=== PATIENT | female | born 1975 | race Caucasian/White ===

== ENCOUNTER 2024-12-30 23:02 | Inpatient (IN) | payer OTHER, SELFPAY ==
[2024-12-30 14:47] VITALS: BP 89/63
[2024-12-30] MEDS: NSS 1000 IV (15:01)
[2024-12-30 15:08] VITALS: BP 95/64
[2024-12-30 15:08] LABS: Hematocrit 44.2 % (37.0-47.0); Hemoglobin 16.2 g/dL (12.0-16.0); Mean Corp Hgb Conc. 36.7 g/dL (33.0-37.0); Mean Corpuscular Volume 85.8 fL (81.0-99.0); Nucleated Red Blood Cells % 0 %; Platelet Count 554 10^3/uL (130-400); Red Cell Dist. Width 11.7 % (11.5-14.5)
[2024-12-30 15:26] LABS: ALT (SGPT) 26 U/L (0-35); AST (SGOT) 36 U/L (14-36); Albumin 5.1 g/dl (3.5-5.0); Alkaline Phosphatase 157 U/L (38-126); Blood Urea Nitrogen 42 mg/dl (7-17); Calcium 10.7 mg/dl (8.4-10.2); Carbon Dioxide 21 mmol/L (22-30); Chloride 91 mmol/L (98-107); Glucose 118 mg/dl (70-99); Lipase 260 U/L (23-300); Potassium 4.5 mmol/L (3.5-5.1); Sodium 126 mmol/L (135-145); Total Protein 8.9 g/dl (6.3-8.2); eGFR 28.71
[2024-12-30 15:45] LABS: HCG, Serum Qualitative Screen Negative
[2024-12-30 17:51] VITALS: BP 89/67
--- NOTE | 2024-12-30 18:18 | ED.GENMED ---
History of Present Illness
General
Chief Complaint: Dehydration Symptoms
Time Seen by Provider: 12/30/24 18:01
History of Present Illness
History of Present Illness:
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
increased ostomy output for the past 4 days. Denies any bloody or mucousy ostomy output. No fevers or chills. No ill contacts at home. Maintained on Skyrizi for presumptive Crohn's disease. Primary GI and surgical management is at the
[facility]
Review of Systems
Review of Systems
Allergies reviewed?: Yes
All Other Systems: ROS reviewed and negative except as documented in HPI and ROS
Phy Exam
Physical Exam
Physical Exam:
GEN: Well appearing, NAD, WDWN
HEENT: Oral mucosa moist, no scleral icterus
Cardiac: Tachycardic, regular
Lung: No respiratory distress, no tachypnea, lungs clear to auscultation
Abdomen: Soft, diffusely tender to all 4 quadrants, left-sided ileostomy
MSK: No gross deformity or injuries
Skin: Good color, no pallor or jaundice, no rashes
Neuro: AO x3, moves all extremities freely
Psych: Calm, cooperative
Course
Orders/Labs/Results
Orders:
Orders
12/30/24 14:53
Test Result ONCE
12/30/24 15:00
Complete Blood Count/With Diff Urgent
Comprehensive Metabolic Panel Urgent
HCG, Serum Qualitative Screen Urgent
Lipase Urgent
12/30/24 15:01
0.9% Sodium Chloride 1000 ml [Nss] 1,000 ml IV BOLUS
12/30/24 18:08
Lactated Ringers [Lr] 1,000 ml IV BOLUS
12/30/24 18:16
Lorazepam [Ativan] 0.5 mg PO NOW STA
Ondansetron Injectable [Zofran] 4 mg IV NOW STA
12/30/24 18:18
CT Abd/pel (oral only)-DH Only Urgent
Comment: hx of total colectomy, J pouch, ileostomy
Reason For Exam: abd pain, increased ostomy output
Iohexol [Omnipaque] See Protocol PO NOW STA
12/30/24 19:55
Ondansetron Injectable [Zofran] 4 mg .ROUTE .STK-MED ONE
12/30/24 19:58
Ondansetron Injectable [Zofran] 4 mg IV NOW STA
12/30/24 22:10
Calprotectin, Fecal [S] Stat
Date Specimen was Collected: 12/31/24
Time Specimen was Collected: 00:05
C DIFF [C difficile Antigen & Toxins] Stat
BONNIE Source: Feces/Stool
Specimen Description:
Date Specimen was Collected: 12/31/24
Time Specimen was Collected: 00:05
Norovirus by PCR Stat
BONNIE Source: Feces/Stool
Specimen Description:
Date Specimen was Collected: 12/31/24
Time Specimen was Collected: 00:05
Stool Culture Urgent
BONNIE Source: Feces/Stool
Specimen Description:
Date Specimen was Collected: 12/30/24
Time Specimen was Collected: 21:54
12/30/24 22:46
Admit/Transfer Patient As Directed
Co-Sign Provider:
Level of Care: Inpatient admission
Assign to:: IMU- Intermediate Care
Physician / Group: Kimberly
Diagnosis: Diarrhea
Reason for Hospitalization: hyponatremia
Expected length of stay greater than two midnights?: Yes
ELOS- Estimated Length of Stay in days: 2
I certify the patient meets the requirements for IP care: Yes
PRN Pain Medication Management As Directed
May give lesser potent ordered pain med per pt: Yes
preference::
Protocol:: Medication orders for pain may be administered in a
manner that supports deferring to patient preference
when the pt is:
- Requesting an ordered lesser potent pain medication.
Least to most potent pain medications are defined
as: acetaminophen < NSAID < tramadol < opioids
(morphine, oxycodone, hydromorphone).
- Requesting a lesser dose of the same medication IF
ORDERED.
- Requesting a less intrusive route of administration
if both routes are prescribed by the provider (PO <
IV).
12/30/24 22:47
Code Status As Directed
Resuscitation Status: Full Code
12/30/24 22:55
Add On - Microbiology Urgent
Tests Added?: nurovirus, C-DIFF
Abnormal Lab Results
12/30/24
15:00
Hgb 16.2 H g/dL
(12.0-16.0)
MCH 31.5 H pg
(27.0-31.0)
Plt Count 554 H 10^3/uL
(130-400)
Absolute Monos (auto) 1.4 H 10^3/uL
(0.1-0.6)
Monocytes % 17.3 H %
(1.7-9.3)
Sodium 126 L mmol/L
(135-145)
Chloride 91 L mmol/L
(98-107)
Carbon Dioxide 21 L mmol/L
(22-30)
BUN 42 H mg/dl
(7-17)
Creatinine 2.1 H mg/dL
(0.6-1.0)
Glucose 118 H mg/dl
(70-99)
Calcium 10.7 H mg/dl
(8.4-10.2)
Alkaline Phosphatase 157 H U/L
(38-126)
Total Protein 8.9 H g/dl
(6.3-8.2)
Albumin 5.1 H g/dl
(3.5-5.0)
12/30/24 15:00
12/30/24 15:00
Vital Signs
Initial and Last Documented VS:
Initial Vital Signs
Temp Pulse Resp BP Pulse Ox
97.9 F 116 20 89/63 97
12/30/24 14:47 12/30/24 14:47 12/30/24 14:47 12/30/24 14:47 12/30/24 14:47
Last Documented Vital Signs
Temp Pulse Resp BP Pulse Ox
97.9 F 96 16 84/60 98
12/30/24 14:47 12/31/24 00:17 12/30/24 23:50 12/31/24 00:17 12/30/24 23:50
MDM/Problems Addressed
MDM/Problems Addressed:
Phone patient with significant hyponatremia and JERRY most likely the product of high output ileostomy, CT shows no acute surgical process. Will send stool for culture and admit to the hospitalist service for further management
*Pulse Oximetry
SaO2: 98
Oxygen Mode of Delivery: Room air
Patient hypoxic: no
*Critical Care Note
Total Time (30-74mins, 75-104mins- exclusive of procedures): Not Applicable
ED Attending Note
-
Portions of this chart may have been created with voice recognition software.� Occasional wrong word or��sound alike� substitutions may have occurred due to the inherent limitations of voice recognition software.
Discharge Plan
Departure
Patient Disposition: Admit
Date of Disposition: 12/30/24
Time of Disposition: 22:13
Presentation/result/management discussed w/ accepting MD/DO: Hospitalist
Discharge Problem:
Gastroenteritis, Acute hyponatremia, Acute kidney injury
Interventions
Interventions:
*Risk Screen - Suicide Last Done: 12/30/24 14:47
*General Assessment Last Done: 12/30/24 14:47
*Neglect/Abuse Screening Last Done: 12/30/24 22:00
*ED- Fall Risk Assessment Last Done: 12/30/24 17:52
*ED COVID-19 Vaccine History Last Done: 12/30/24 22:00
ED- Cardiac Assessment Last Done: 12/30/24 20:11
ED- Neurological Assessment Last Done: 12/30/24 17:52
ED- Pulmonary Assessment Last Done: 12/30/24 17:52
[2024-12-30] MEDS: LR 1000 IV (18:32)
[2024-12-30] MEDS: ATIVAN 0.5 MG PO (18:32)
[2024-12-30] MEDS: ZOFRAN 4 MG IV ×2 (18:34→19:58)
[2024-12-30] MEDS: OMNIPAQUE 50 ML PO (18:36)
[2024-12-30 22:17] VITALS: BP 89/65
--- NOTE | 2024-12-30 22:26 | HPS.HSE ---
Family Physician
-
Family Physician: Vinicio Richardson
Chief Complaint
-
Dehydration
History of Present Illness
This is a 49-year-old female with past medical history significant for Crohn's/ulcerative colitis was status post complete colectomy with subsequent ileostomy and now currently on Skyrizi who presents to the emergency department with generalized
weakness and complaints of dehydration including muscle cramps and lightheadedness.
Patient reported that she began having symptoms about 4 days ago. She started having nausea and vomiting which was nonbloody and nonbilious. She reported that she has had increased output from ileostomy. She reports any intake results in
intermediate increased output from the ileostomy. She reports chills but denies any fevers. She denies any sick contacts.
She had extensive stool evaluation on December 02 which was negative for an infectious process. There was no acute inflammatory process at that time. She was continued on current dose of Skyrizi injections.
In ED she was afebrile, blood pressure was 90/65 with a pulse rate of 87 and she satting 100% on room air. There was no leukocytosis, hemoglobin was 16.2 with a plate count of 580. Sodium was 126 with rest of the lites normal. BUN and creatinine
were elevated at 42 and 2.1. Calcium was 10.7. Glucose was normal at 118.
CT of the abdomen pelvis shows no acute findings and consistent with her prior surgery.
Medical History
Past Medical History
Past Medical History: Reports Other
Additional Past Medical History:
Ulcerative colitis
Past Surgical History: Reports Bowel Resection (Colectomy with end ileostomy )
Social History
Tobacco: Non-smoker
Alcohol: None
Drug: None
Family History
Family History: Not pertinent
Allergies / Home Medications
Allergies reflects when Allergies were last updated in [facility].
Home Medications with original date entered in [facility]
Allergy/Medication List:
Allergies
Allergy/AdvReac Type Severity Reaction Status Date / Time
Penicillins Allergy Unknown Verified 12/30/24 14:48
Sulfa (Sulfonamide Allergy Unknown Verified 12/30/24 14:48
Antibiotics)
Home Medications
diphenhydramine HCl 50 mg capsule 50 mg PO HS 12/30/24
escitalopram oxalate 10 mg tablet (Lexapro) 10 mg PO DAILY 12/30/24
loperamide 2 mg capsule 2 mg PO QID PRN diarrhea 12/30/24
lorazepam 0.5 mg tablet (Ativan) 0.5 mg PO DAILY PRN anxiety 12/30/24
risankizumab-rzaa 150 mg/mL subcutaneous syringe (Skyrizi) 150 mg SC Q8W 12/30/24
Review of Systems
-
A 12 point ROS was completed and negative except as noted: Yes
Constitutional: Reports No Symptoms
EENT: Reports No Symptoms
Respiratory: Reports No Symptoms
Cardiac: Reports No Symptoms
Abdomen/GI: Reports Nausea, Vomiting and Anorexia
: Reports No Symptoms
Musculoskeletal: Reports No Symptoms
Skin: Reports No Symptoms
Neurological: Reports No Symptoms
Endocrine: Reports No Symptoms
Hematologic/Lymphatic: Reports No Symptoms
Psych: Reports No Symptoms
Physical Exam
Vital Signs
Vital Signs
Temp Pulse Resp BP Pulse Ox
97.9 F 87 20 89/65 100
12/30/24 14:47 12/30/24 21:54 12/30/24 17:51 12/30/24 22:17 12/30/24 21:54
Physical Exam
General: No Apparent Distress and Appears Chronically Ill
HEENT: NormoCephalic, Moist mucous membranes and Atraumatic
Respiratory: Clear
Cardiac: S1/S2 and Regular Rhythm; No Murmur or Rub
GI: Soft, Non Tender, Non Distended, Normal Bowel Sounds and Ostomy; No Organomegaly
Rectal: Deferred by Provider
Genito-urinary: Deferred by me
Musculoskeletal: No Clubbing, No Cyanosis and No Edema
Skin: No Rash
Neuro: AO x 3 and Nonfocal/grossly intact
Psych: Calm
Laboratory Results
-
12/30/24 15:00
12/30/24 15:00
Laboratory Results
Total Bilirubin 1.2 mg/dl (0.2-1.3) 12/30/24 15:00
AST 36 U/L (14-36) 12/30/24 15:00
ALT 26 U/L (0-35) 12/30/24 15:00
Alkaline Phosphatase 157 U/L (38-126) H 12/30/24 15:00
Lipase 260 U/L (23-300) 12/30/24 15:00
Data Reviewed
-
CT Scan: Report Reviewed by me
Lab Data: Labs Reviewed by me
Old Records: Reviewed
Impression/Plan
-
IMPRESSION:
49-year-old with history of Crohn's disease presents to the emergency department with 4 days of nausea vomiting and increased output from ileostomy consistent with gastroenteritis but cannot rule out an inflammatory process. She has no leukocytosis
but does have signs of significant dehydration with elevated hemoglobin, elevated BUN and creatinine and a sodium of 126. Recent labs usual sodium usually runs around 135 with a baseline creatinine of around 0.7. Other labs are unremarkable. CT
of the abdomen pelvis shows no acute intra-abdominal process. Blood pressure usually ranges 95 systolic but is currently around 87 systolic with patient's not having any acute symptoms.
PLAN:
Diarrhea -suspect likely viral gastroenteritis but cannot rule out inflammatory process
-Admit to MedSurg
-Check stool for norovirus, stool culture, WBC, C. difficile
-Check fecal calprotectin
-Check ESR and CRP
-In the absence of signs of mucus production, will hold off on steroids for now
-Aggressive hydration with IV normal saline
Hyponatremia-suspect secondary to massive volume losses and decreased p.o. intake
-Continue IV fluids 1-2 episodes an hour, normal saline,
-Free water intake restriction to 1200 cc for now
-Repeat labs after normal saline bolus, if improving continue IV fluids
-Check urine awesome's lites
-Orthostatic vital signs
-Nephrology consultation if labs not improving
JERRY -suspect prerenal azotemia with rapid rise in BUN and creatinine as well as a BUN/creatinine ratio greater than 20
-IV fluids as above
-No nephrotoxins
DVT prophylaxis�heparin subcu
CODE STATUS�full code
[2024-12-30 22:27] VITALS: BMI 17.5
[2024-12-30 23:50] VITALS: BP 80/55
[2024-12-30 23:56] VITALS: BP 84/60
[2024-12-31] VITALS (17 sets, daily range): BP systolic 74–115; BP diastolic 39–70; PULSE 82–110; BMI 17.5
[2024-12-31] MEDS: NSS 500 IV ×2 (00:20→11:42)
[2024-12-31] MEDS: BENADRYL 25 MG IV (03:17)
[2024-12-31] MEDS: ZOFRAN 4 MG IV ×2 (03:27→10:20)
[2024-12-31] MEDS: SODIUM BICARBONATE 1075 MEQ IV (03:30)
[2024-12-31 03:50] LABS: Blood Urea Nitrogen 32 mg/dl (7-17); Calcium 9.0 mg/dl (8.4-10.2); Carbon Dioxide 26 mmol/L (22-30); Chloride 99 mmol/L (98-107); Estimated Creatinine Clearance 37 ml/min; Glucose 95 mg/dl (70-99); Magnesium 1.7 mg/dl (1.6-2.3); Potassium 3.9 mmol/L (3.5-5.1); Sodium 129 mmol/L (135-145); eGFR 46.70
[2024-12-31] MEDS: TYLENOL 650 MG PO ×2 (06:35→17:32)
[2024-12-31 06:54] LABS: Blood Urea Nitrogen 29 mg/dl (7-17); Calcium 8.9 mg/dl (8.4-10.2); Carbon Dioxide 27 mmol/L (22-30); Chloride 99 mmol/L (98-107); Estimated Creatinine Clearance 37 ml/min; Glucose 81 mg/dl (70-99); Magnesium 1.7 mg/dl (1.6-2.3); Potassium 3.6 mmol/L (3.5-5.1); Sodium 129 mmol/L (135-145); eGFR 46.70
[2024-12-31 06:57] LABS: C-Reactive Protein 8.90 mg/L (0.0-10.00)
[2024-12-31 07:00] LABS: Hematocrit 31.7 % (37.0-47.0); Hemoglobin 11.4 g/dL (12.0-16.0); Mean Corp Hgb Conc. 36.0 g/dL (33.0-37.0); Mean Corpuscular Volume 86.1 fL (81.0-99.0); Platelet Count 320 10^3/uL (130-400); Red Cell Dist. Width 11.9 % (11.5-14.5)
[2024-12-31 07:27] LABS: TSH 0.96 uIU/ml (0.47-4.68)
--- NOTE | 2024-12-31 08:50 | EDRN ---
in to See pt at this time
[2024-12-31] MEDS: LEXAPRO 10 MG PO (09:09)
[2024-12-31] MEDS: FIORICET 1 TAB PO (09:10)
--- NOTE | 2024-12-31 09:33 | EDRN ---
Notified Dr. Poli nesbitt at this time about low BP via TT.
--- NOTE | 2024-12-31 10:05 | EDRN ---
Pt eating breakfast at this time.
--- NOTE | 2024-12-31 10:07 | EDRN ---
At 9:39 response to TT at 9:33 was that pt is still probably dry and asked about bicarb drip and was informed that it is still infusing at 9:52. then that BP sitting was 93/69 when sitting up and eating at 9:53 and he asked how she is feeling and
was told fine. Pt after last BP requested to have BP cuff removed but this RN said that it should be continued to be monitored as it was so low.
--- NOTE | 2024-12-31 10:13 | EDRN ---
Pt OOB to BR after finishing her meal though has nausea now and will administer zofran.
--- NOTE | 2024-12-31 11:13 | EDRN ---
Pt has outstanding stool cultures and needs a private room in this case so room had to be changed w/ admissions called at this time.
--- NOTE | 2024-12-31 11:26 | EDRN ---
TT sent to Dr. Poli Robin at this time about pt's orthostatic VS w/ standing BP 76/57 w/ HR 110.
--- NOTE | 2024-12-31 11:45 | EDRN ---
500 Ml of NSS ordered and hung wide open at this time.
--- NOTE | 2024-12-31 11:45 | EDRN ---
Pt refused to keep BP cuff on at this time.
--- NOTE | 2024-12-31 11:51 | W.PN.HOSP.TC ---
Today's Communication/Plan
-
Assessment / Plan
Assessment / Plan
General: No Apparent Distress, Conversant
HEENT: NormoCephalic, Moist mucous membranes, Atraumatic
Respiratory: Clear and Non Labored Respirations
Cardiac: S1/S2 and Regular Rhythm; No Rub or Gallop
GI: Soft, Non Tender, ileostomy in place
Musculoskeletal: No Edema, no deformity
Skin: Warm and dry
: NO Phillips
Neuro: Awake, Alert, Nonfocal/grossly intact
Psych: Calm and cooperative
Ms. Barrios is a 49-year-old female with a medical history of Crohn's disease (status post total colectomy with end ileostomy, on [facility]) who presents with generalized weakness, muscle cramps, and lightheadedness. Her symptoms began proximally 4
days prior to arrival when she developed nausea and nonbloody vomiting in addition to increased ileostomy output. Extensive recent stool evaluation on December 02 is negative for infectious processes. She was hypotensive in the ED with a BP of 90/65.
No leukocytosis. Elevated hemoglobin of 16.2 and platelets of 580 suspect due to hemoconcentration. She was hyponatremic with a serum sodium of 126. Creatinine was abnormal at 2.1 and calcium was 10.7 which is likely also due to
hemoconcentration. CT of her abdomen and pelvis showed no acute abnormalities. She was given IV fluids and admitted for further evaluation management.
Diarrhea:
- Suspect viral, C. difficile negative, Salmonella/Shigella/Campylobacter pending
- Check fecal calprotectin
- Continue aggressive IV fluid resuscitation
- Start Metamucil to improve high output from her ileostomy
- If no improvement will ask for GI input
- Loperamide as needed
Metabolic acidosis:
- Mild, secondary to GI losses
- Started on IV fluids with bicarb
- Now resolved
JERRY:
- Suspect prerenal in the setting of GI losses and poor recent p.o. intake due to nausea with vomiting
- Renal function significantly improving with IV fluids
- Continue IV fluids and monitor
Hypotension:
- Likely due to GI losses
- Monitor blood pressure with ongoing fluid resuscitation
Hyponatremia:
- Likely hypovolemic
- Initial serum sodium 126
- Improved to 129 with resuscitative fluids
- Continuing isotonic fluids
Hypercalcemia:
- Suspect this is not a true hypercalcemia but rather due to hemoconcentration due to GI losses
- Calcium levels now within normal limits after adequate IV fluid resuscitation
- Will monitor
Anemia:
- Dramatic drop in hemoglobin from 16.2 upon admission to 11.4 after IV fluid resuscitation is likely due to dilutional effect from IV fluids
- No evidence of bleeding
- Will monitor
DVT prophylaxis: Subcu heparin
CODE STATUS: Full code
Total time spent on today's encounter was 55 minutes
Anticipated Discharge: 24 - 48 hours
Subjective/Interval History
-
Date of Service: December 31, 2024
Patient was seen and examined at bedside this morning. She reports feeling slightly stronger now that compared to when she first arrived in the emergency department. She has received resuscitative fluids and is now on a bicarbonate drip.
Objective Data
-
Labs:
Laboratory Results
12/31/24 12/31/24
03:15 06:28
WBC 6.0
Hgb 11.4 L D
Hct 31.7 L
Plt Count 320 D
Sodium 129 L 129 L
Potassium 3.9 3.6
Chloride 99 99
Carbon Dioxide 26 27
BUN 32 H 29 H
Creatinine 1.4 H 1.4 H
Glucose 95 81
Calcium 9.0 D 8.9
Vital Signs:
Vital Signs
Temp Pulse Resp BP Pulse Ox
97.9 F 86 14 90/70 97
12/30/24 14:47 12/31/24 09:15 12/31/24 09:15 12/31/24 10:00 12/31/24 09:15
I&O
12/30/24 12/31/24 01/01/25
06:59 06:59 06:59
Intake Total 2500 / 2500
Balance 2500 / 2500
Review of Systems
-
History Source: Patient
All other systems: Reviewed and negative
Constitutional: Reports Weakness
Neuro: Reports Headache
Physical Exam
-
General: No Apparent Distress
--- NOTE | 2024-12-31 12:49 | EDRN ---
Spoke w/ Trich RN rubber compounder supervisor and as the Noro virus and C. Diff are both negative even though rest of stool cultures are outstanding, pt does not need a private room and be assigned a semi private.
--- NOTE | 2024-12-31 13:30 | EDRN ---
Pt refused metamucil stating it makes her feel sick.
--- NOTE | 2024-12-31 14:10 | EDRN ---
Pt seen by Dr. Varela at this time.
--- NOTE | 2024-12-31 14:14 | EDRN ---
Pt received her lunch tray at this time.
--- NOTE | 2024-12-31 14:30 | EDRN ---
Dr. Poli Robin informed of last BP and that pt is enroute to 4th floor east admission bed at this time and given floor extension [phone] at this time.
[2024-12-31] MEDS: NSS 1000 IV (15:24)
--- NOTE | 2024-12-31 15:40 | TRANSFER ---
pt rec'd from ED. pt ambulated from stretcher to bed without assistance. pt AAOx3, VSS. LLQ ileostomy with yellow/green, thin output. during admission, pt admits to recent thoughts of killing herself in the past two weeks, associated with feelings
of hopelessness. Dr. Aviles notified, 1:1 observation initiated per protocol, psychiatry consulted. plan of care ongoing.
--- NOTE | 2024-12-31 16:57 | CM ---
Received consult for suicide risk. Patient stated that she lives with her significant other and 12 year old daughter in one story home with no steps. She described herself as independent with all of her ADLs, personal care, dressing and bathing. She
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 She has never had VN. She has a shower chair. She has not been to a SNF.
Patient lives at home with her 12 y/o daughter who has ODD and Autism and she cares for her. She is on disability and does not work.
Patient was adamant that she is not currently suicidal or having any suicidal ideation. She admitted to major depressive disorder and as this is the case stated that there have been times that she has had very fleeting thoughts of self injury but
she will not act on them and realizes that her daughter needs her.
Patient very upset about the 1:1. She stated that she will not stay if she continues to have one. She expressed not because she feels she is in danger, but because it is intrusive.
Emotional support provided. Explanation provided that an MD would have to determine her level of safety and encouraged her to stay until that can happen. She agreed.
RN updated.
Plan: Case management will continue to follow and assist with discharge planning. Patient will return home when discharged.
--- NOTE | 2024-12-31 17:07 | W.PN.UPDATE ---
Update Note
Progress Note Update
Cross coverage:
As per RN patient has been placed on one-to-one observation and psychiatry consulted due to suicidal ideations and she wanted me to talk to the patient since he wants to leave AMA. I came to see her and she is 'visibly upset and she states that who
does not have suicidal thoughts when in so much pain as I am 'but does not want to elaborate further and just wants to leave'. Unfortunately explained to patient that she can not leave AMA under current circumstances and we need psychiatry
clearance. Discussed with RN.
[2024-12-31] MEDS: IMODIUM 2 MG PO (17:32)
[2024-12-31] MEDS: ATIVAN 0.5 MG PO (17:32)
[2024-12-31] MEDS: DILAUDID 0.5 MG IV ×2 (18:26→23:37)
[2025-01-01] MEDS: BENADRYL 25 MG IV (01:27)
[2025-01-01] MEDS: DILAUDID 0.5 MG IV ×2 (04:25→08:34)
[2025-01-01] MEDS: NSS 1000 IV (05:21)
[2025-01-01 07:34] LABS: Hematocrit 31.5 % (37.0-47.0); Hemoglobin 10.8 g/dL (12.0-16.0); Mean Corp Hgb Conc. 34.3 g/dL (33.0-37.0); Mean Corpuscular Volume 90.0 fL (81.0-99.0); Nucleated Red Blood Cells % 0 %; Platelet Count 266 10^3/uL (130-400); Red Cell Dist. Width 12.0 % (11.5-14.5)
[2025-01-01] MEDS: TYLENOL 650 MG PO (07:53)
[2025-01-01] MEDS: LEXAPRO 10 MG PO (07:53)
[2025-01-01 07:57] LABS: Blood Urea Nitrogen 17 mg/dl (7-17); Calcium 8.5 mg/dl (8.4-10.2); Carbon Dioxide 30 mmol/L (22-30); Chloride 104 mmol/L (98-107); Estimated Creatinine Clearance 52 ml/min; Glucose 84 mg/dl (70-99); Magnesium 1.7 mg/dl (1.6-2.3); Potassium 3.2 mmol/L (3.5-5.1); Sodium 134 mmol/L (135-145); eGFR > 60.00
[2025-01-01 08:00] VITALS: BP 102/66
[2025-01-01] MEDS: KCL 40 MEQ PO (08:37)
--- NOTE | 2025-01-01 09:29 | CS.PSYCHR ---
Consult Summary - Psychiatry
-
Patient seen by me on 01/01/2025 from 9:25am-9:48am
Psychiatry consult for suicidal ideations. Chart reviewed. 49-year-old female with history of Crohn's disease admitted on 12/30 with generalized weakness, muscle cramps, and lightheadedness. Primary team consulted psychiatry after patient had
expressed suicidal ideations. Patient admits to having said this but says she did not mean it. She states she was in pain and frustrated with her chronic medical condition at the time. She denies any thoughts of hurting herself at this time and says
'I have a 12 yo daughter, I would never.' She admits to a history of depression, anxiety and PTSD which being managed by her PCP while she pursues finding an outpatient psychiatrist/therapist. PCP prescribed her lexapro 10mg daily and Ativan 0.5mg
daily PRN anxiety at the beginning of December. She was comfortable with me calling her boyfriend Federico ([phone]) who stated he was confused by this situation and is not at all concerned that patient is a suicide risk. He is comfortable with her
returning home today.
MSE- good eye contact. fluent spontaneous speech. logical and goal directed. mood is anxious. affect shows normal range. denies SI/HI/AVH. no delusions. insight and judgement intact. fully oriented.
Past psych history- history of depression, anxiety and PTSD; one 302 admission for accidental OD in 2014. States she had insomnia and took too much Xanax/Ambien due to confusion from the medications. No other psychiatric hospitalizations. Used to
see a psychiatrist but now PCP has been managing medication.
Past medical history- Crohn's Disease
D&A- denies misuse or D&A treatment
Social- Lives with boyfriend and 12 yo daughter. on disability for medical issues since 2011
Family hx- denies family mental health history
A/P- 49 yo female with history of depression, anxiety and PTSD who expressed SI during screening questions. This occurred at time of stress and is now resolved. Boyfriend is comfortable with her return home today. She will follow up with her PCP
regarding medication management with Lexapro and PRN Ativan. Would recommend she see a psychiatrist/therapist as an outpatient if she is able. Case discussed with nursing. Psychiatry will sign off.
--- NOTE | 2025-01-01 10:56 | W.DCSUMMARY ---
Discharge Summary
Discharge Data
Date of Admission: 12/30/24
Date of Discharge: 01/01/25
Total time spent discharging patient (in min): 46
-
Pending Results: Yes
Additional Pending Results:
Salmonella/Shigella/Campylobacter testing
Hospital Course
Ms. Farr is a 49-year-old female with a medical history of Crohn's disease (status post total colectomy with end ileostomy, on [facility]) who presents with generalized weakness, muscle cramps, and lightheadedness. Her symptoms began proximally 4
days prior to arrival when she developed nausea and nonbloody vomiting in addition to increased ileostomy output. Extensive recent stool evaluation on December 02 was negative for infectious processes. She was hypotensive in the ED with a BP of
90/65. No leukocytosis. Elevated hemoglobin of 16.2 and platelets of 580 suspect due to hemoconcentration. She was hyponatremic with a serum sodium of 126. Creatinine was abnormal at 2.1 and calcium was 10.7 which is likely also due to
hemoconcentration. CT of her abdomen and pelvis showed no acute abnormalities. She was given IV fluids and admitted for further evaluation management.
Her metabolic acidosis resolved with resuscitative fluids and sodium bicarb drip. Diarrhea also improved. C. difficile testing was negative. This is likely transient viral illness. She should continue loperamide as needed and stool bulking
agents (says white rice works best for her). Her renal function also returned to within normal limits. Her electrolyte derangements improved with IV fluids, repletion, and improvement in her diarrhea. She had a mild anemia with a hemoglobin that
appeared stable around 11 after a significant drop from 16.2 on initial labs. However, this is very likely a dilutional effect as all of her cell lines similarly decreased after IV fluid resuscitation. She has no overt evidence of bleeding. She
was evaluated by psychiatry after her mental health screening triggered concern for suicidal ideation. After further discussion, the patient is not a suicide risk and is able to contract for safety. She has been treated for PTSD with Lexapro and
Ativan prescribed by her PCP, which she will continue. She will follow-up with her PCP after discharge. She was medically stable at time of hospital discharge.
General: No Apparent Distress, Conversant
HEENT: NormoCephalic, Moist mucous membranes, Atraumatic
Respiratory: Clear and Non Labored Respirations
Cardiac: S1/S2 and Regular Rhythm; No Rub or Gallop
GI: Soft, Non Tender, ileostomy in place
Musculoskeletal: No Edema, no deformity
Skin: Warm and dry
: NO Phillips
Neuro: Awake, Alert, Nonfocal/grossly intact
Psych: Calm and cooperative
Discharge Plan
-
Patient Disposition: Home (Routine Discharge)
Discharge Diagnosis/Procedures: Diarrhea, metabolic acidosis, JERRY
Activity Restrictions/Additional Instructions:
Ms. Farr is a 49-year-old female with a medical history of Crohn's disease (status post total colectomy with end ileostomy, on [facility]) who presents with generalized weakness, muscle cramps, and lightheadedness. Her symptoms began proximally 4
days prior to arrival when she developed nausea and nonbloody vomiting in addition to increased ileostomy output. Extensive recent stool evaluation on December 02 was negative for infectious processes. She was hypotensive in the ED with a BP of
90/65. No leukocytosis. Elevated hemoglobin of 16.2 and platelets of 580 suspect due to hemoconcentration. She was hyponatremic with a serum sodium of 126. Creatinine was abnormal at 2.1 and calcium was 10.7 which is likely also due to
hemoconcentration. CT of her abdomen and pelvis showed no acute abnormalities. She was given IV fluids and admitted for further evaluation management.
Her metabolic acidosis resolved with resuscitative fluids and sodium bicarb drip. Diarrhea also improved. C. difficile testing was negative. This is likely transient viral illness. She should continue loperamide as needed and stool bulking
agents (says white rice works best for her). Her renal function also returned to within normal limits. Her electrolyte derangements improved with IV fluids, repletion, and improvement in her diarrhea. She had a mild anemia with a hemoglobin that
appeared stable around 11 after a significant drop from 16.2 on initial labs. However, this is very likely a dilutional effect as all of her cell lines similarly decreased after IV fluid resuscitation. She has no overt evidence of bleeding. She
was evaluated by psychiatry after her mental health screening triggered concern for suicidal ideation. After further discussion, the patient is not a suicide risk and is able to contract for safety. She has been treated for PTSD with Lexapro and
Ativan prescribed by her PCP, which she will continue. She will follow-up with her PCP after discharge. She was medically stable at time of hospital discharge.
Referrals:
Vinicio Richardson MD [Family Provider, [facility]]
Prescriptions:
Continued
diphenhydramine HCl 50 mg Capsule
50 mg PO HS
loperamide 2 mg Capsule
2 mg PO QID PRN (Reason: diarrhea)
lorazepam [Ativan] 0.5 mg Tablet
0.5 mg PO DAILY PRN (Reason: anxiety)
escitalopram oxalate [Lexapro] 10 mg Tablet
10 mg PO DAILY
Skyrizi 150 mg/mL Syringe
150 mg SC Q8W
Discharge Orders:
Discharge Patient (As Directed); Ordered 01/01/25
Ordered By: Willie Aviles
Discharge Date and Time
Print Language: OCCITAN
[2025-01-03 20:34] LABS: Calprotectin, Fecal 8 ug/g (<=49)
== END 2025-01-01 12:15 | disposition home or self-care (01) | DRG 392 ==
LOC: 4 EAST ACU 23:02
PROVIDERS: Emergency Medicine; ADMITTING PHYSICIAN Internal Medicine; ATTENDING PHYSICIAN Internal Medicine; EMERGENCY PHYSICIAN Emergency Medicine; FAMILY PHYSICIAN Family Medicine
DX: A08.4 Viral intestinal infection, unspecified (principal); K50.90 Crohn's disease, unspecified, without complications; E87.1 Hypo-osmolality and hyponatremia; E87.20 Acidosis, unspecified; N17.9 Acute kidney failure, unspecified; K91.850 Pouchitis; Z90.49 Acquired absence of other specified parts of digestive tract; D64.9 Anemia, unspecified; F43.10 Post-traumatic stress disorder, unspecified; E86.0 Dehydration; Z93.2 Ileostomy status; Z88.0 Allergy status to penicillin; Z88.2 Allergy status to sulfonamides; I95.9 Hypotension, unspecified
CPT/HCPCS: 74176; 80048; 80053; 83690; 83735; 83993; 84100; 84443; 84703; 85025; 85027; 86140; 87045; 87046; 87077; 87324; 87427; 87449; 87798; 96361; 96374; 96376; 99284; J7030

== ENCOUNTER 2025-02-18 17:14 | Emergency (ER) | payer OTHER, SELFPAY ==
[2025-02-18 17:16] VITALS: BP 104/68
[2025-02-18 17:49] VITALS: BMI 22.1
--- NOTE | 2025-02-18 17:57 | ED.GENMED ---
History of Present Illness
General
Chief Complaint: Dehydration Symptoms
Source: patient
Exam Limitations: none
Time Seen by Provider: 02/18/25 17:36
Nursing documentation reviewed up to this point in time: agreed with
History of Present Illness
History of Present Illness:
Patient is a 50-year-old female past medical history of Crohn's status post colectomy with ileostomy on presents to the ER for evaluation. Patient feels that she is dehydrated. She has had cramping in her joints and muscles for the past
several days which worsened on Thursday. She also has noted increased stool production in her ileostomy bag. She has occurred multiple times in the past and she has been admitted previously at this institution as well as other institutions for
dehydration and electrolyte abnormality. She does report her stool is normal brown/green and has been more motley.
She denies any associated nausea fevers. She has chronic abdominal pain no new pain. She is followed by [facility] surgeon Dr. Emmett Mcgovern as well as Dr. Ortiz.
Last admission here was December,and at that time her sodium was low at 126 and her creatinine was elevated to 2.1.
Phy Exam
General Physical Exam
General Presentation: no apparent distress
General age: appears stated age
General Skin: warm and dry
General Habitus: normal
General Mental: alert
General Hydration: dry mucous membranes
Cardiovascular Exam
Cardiovascular Exam: regular rate/rhythm, no murmur and normal peripheral pulses
Pulmonary Exam
Pulmonary Exam: lungs clear and no respiratory distress
Gastrointestinal Exam
Gastrointestinal Exam: soft and other (+ Ileostomy bag in place nonspecific abdominal tenderness (pt reports this is chronic))
Neurological Exam
Neurological Exam: alert and oriented x3
Musculoskeletal Exam
Musculoskeletal Exam: full ROM
Skin Exam
Skin Exam: normal color and warm/dry
Psychiatric Exam
Psychiatric Exam: normal mood/affect
Course
Orders/Labs/Results
Orders:
Orders
02/18/25 17:55
IV Insert/Care/Rem.- Treatment PRN
0.9% Sodium Chloride 1000 ml [Nss] 1,000 ml IV BOLUS
02/18/25 18:08
Complete Blood Count/With Diff Urgent
02/18/25 18:30
C DIFF [C difficile Antigen & Toxins] Urgent
BONNIE Source: Feces/Stool
Specimen Description:
Date Specimen was Collected: 02/18/25
Time Specimen was Collected: 18:28
Stool Culture Urgent
BONNIE Source: Feces/Stool
Specimen Description:
Date Specimen was Collected: 02/18/25
Time Specimen was Collected: 18:29
02/18/25 18:41
Comprehensive Metabolic Panel Urgent
UA Reflex to Culture [Urinalysis Reflex To Culture] Urgent
Date Specimen was Collected: 02/18/25
Time Specimen was Collected: 18:36
Urine Microscopic Reflex Cult Urgent
Urine Culture Urgent
BONNIE Source: U
Specimen Description:
Date Specimen was Collected: 02/18/25
Time Specimen was Collected: 18:36
02/18/25 20:11
0.9% Sodium Chloride 500 ml [Nss] 500 ml IV BOLUS
02/18/25 20:12
Potassium Chloride [KCl] 40 meq PO NOW STA
02/18/25 21:03
Ondansetron Injectable [Zofran] 4 mg .ROUTE .STK-MED ONE
Ondansetron Injectable [Zofran] 4 mg IV NOW STA
Abnormal Lab Results
02/18/25 02/18/25
18:08 18:41
Plt Count 413 H 10^3/uL
(130-400)
Absolute Monos (auto) 1.7 H 10^3/uL
(0.1-0.6)
Lymphocytes % 19.1 L %
(20.5-51.1)
Monocytes % 15.9 H %
(1.7-9.3)
Sodium 128 L mmol/L
(135-145)
Potassium 3.3 L mmol/L
(3.5-5.1)
Chloride 96 L mmol/L
(98-107)
BUN 30 H mg/dl
(7-17)
Creatinine 1.2 H mg/dL
(0.6-1.0)
Alkaline Phosphatase 128 H U/L
(38-126)
Ur Occult Blood Reflex 1+ A
(Negative)
Leukocyte Esterase Rfl 1+ A
(Negative)
Urine Bacteria (Reflex) Moderate A
(Negative)
Urine Albumin (Reflex) 2+ A
(Neg - Trace)
02/18/25 18:08
02/18/25 18:41
Vital Signs
Initial and Last Documented VS:
Initial Vital Signs
Temp Pulse Resp BP Pulse Ox
97.5 F 103 18 104/68 100
02/18/25 17:16 02/18/25 17:16 02/18/25 17:16 02/18/25 17:16 02/18/25 17:16
Last Documented Vital Signs
Temp Pulse Resp BP Pulse Ox
97.5 F 103 18 104/68 100
02/18/25 17:16 02/18/25 17:16 02/18/25 17:16 02/18/25 17:16 02/18/25 18:01
Recycling Center Operator consulted with Physician
Recycling Center Operator consulted with physician?: Yes
Name of Physician Consulted: Noh
MDM/Problems Addressed
Differential Diagnosis Includes:
Not limited to acute dehydration, electrolyte abnormality
MDM/Problems Addressed:
As documented patient is a 50-year-old female with ileostomy presents for increased stool production concern for dehydration. This has occurred in the past. She denies any actual vomiting. She denies any urinary frequency or urgency no UTI
symptoms. She denies any fever or chills. Denies any new abdominal pain. She does have a chronic component of abdominal pain. Her white count is normal her hemoglobin is stable her sodium is mildly low at 128 and her potassium is mildly low at
3.3 her BUN is elevated at 30 and her creatinine is elevated 1.2.
She was given a total of 1500 cc of fluids and is feeling better. Case reviewed with ED physician patient was offered admission versus discharge and she would like to try to go home. She is very well-appearing and this is reasonable however I did
review with patient the importance of staying very hydrated increasing foods high in potassium and close reevaluation with her family doctor in the next 2 to 3 days for repeat labs and repeat reevaluation. She is to return any worsening of symptoms.
*Pulse Oximetry
SaO2: 100
Oxygen Mode of Delivery: Room air
Patient hypoxic: no
*Critical Care Note
Total Time (30-74mins, 75-104mins- exclusive of procedures): Not Applicable
ED Attending Note
-
Portions of this chart may have been created with voice recognition software.� Occasional wrong word or��sound alike� substitutions may have occurred due to the inherent limitations of voice recognition software.
Discharge Plan
Departure
Patient Disposition: Home (Routine Discharge)
Date of Disposition: 02/18/25
Time of Disposition: 22:44
Patient with high blood pressure during this ER visit?: No
Condition: Fair
Covid-19: Not Applicable
Discharge Problem:
Acute dehydration
Instructions: Dehydration, Adult (DC)
Prescriptions:
No Action
diphenhydramine HCl 50 mg Capsule
50 mg PO HS
loperamide 2 mg Capsule
2 mg PO QID PRN (Reason: diarrhea)
lorazepam [Ativan] 0.5 mg Tablet
0.5 mg PO DAILY PRN (Reason: anxiety)
escitalopram oxalate [Lexapro] 10 mg Tablet
10 mg PO DAILY
Skyrizi 150 mg/mL Syringe
150 mg SC Q8W
Referrals:
Vinicio Richardson MD [Family Provider, Family Practice]
Activity Restrictions/Additional Instructions:
As discussed you were hydrated here in the ER and given 1 dose of oral potassium. Increase foods high in potassium. be sure to stay very well-hydrated. Return to the ER for any worsening of symptoms.
Please follow-up with your family doctor in the next 2 days for reevaluation and repeat labs. Please be sure to have your potassium checked as well as your other chemistries.
Interventions
Interventions:
*Risk Screen - Suicide Last Done: 02/18/25 17:16
*General Assessment Last Done: 02/18/25 17:16
*Neglect/Abuse Screening Last Done: 02/18/25 17:16
*ED- Fall Risk Assessment Last Done: 02/18/25 17:49
*ED COVID-19 Vaccine History Last Done: 02/18/25 17:49
*ED Influenza Vaccine History Last Done: 02/18/25 17:49
ED- Cardiac Assessment Last Done: 02/18/25 17:49
ED- Neurological Assessment Last Done: 02/18/25 17:49
ED- Pulmonary Assessment Last Done: 02/18/25 17:49
Discharge Date and Time
Print Language: WOLOF
[2025-02-18] MEDS: NSS 1000 IV (18:13)
[2025-02-18 18:23] LABS: Hematocrit 38.2 % (37.0-47.0); Hemoglobin 13.7 g/dL (12.0-16.0); Mean Corp Hgb Conc. 35.9 g/dL (33.0-37.0); Mean Corpuscular Volume 86.0 fL (81.0-99.0); Nucleated Red Blood Cells % 0 %; Platelet Count 413 10^3/uL (130-400); Red Cell Dist. Width 12.2 % (11.5-14.5)
[2025-02-18 18:47] LABS: Urine Character Clear (Clear)
[2025-02-18 18:52] LABS: Urine Red Blood Cell 0-2 /HPF (0-2)
[2025-02-18 19:05] LABS: ALT (SGPT) 21 U/L (0-35); AST (SGOT) 30 U/L (14-36); Albumin 4.3 g/dl (3.5-5.0); Alkaline Phosphatase 128 U/L (38-126); Blood Urea Nitrogen 30 mg/dl (7-17); Calcium 9.1 mg/dl (8.4-10.2); Carbon Dioxide 23 mmol/L (22-30); Chloride 96 mmol/L (98-107); Estimated Creatinine Clearance 47 ml/min; Glucose 96 mg/dl (70-99); Potassium 3.3 mmol/L (3.5-5.1); Sodium 128 mmol/L (135-145); Total Protein 7.7 g/dl (6.3-8.2); eGFR 55.84
[2025-02-18] MEDS: KCL 40 MEQ PO (20:57)
[2025-02-18] MEDS: NSS 500 IV (20:58)
[2025-02-18] MEDS: ZOFRAN 4 MG IV (21:04)
== END 2025-02-18 22:59 | disposition home or self-care (01) ==
LOC: EMR 17:14
PROVIDERS: Nurse Practitioner; EMERGENCY PHYSICIAN Emergency Medicine; FAMILY PHYSICIAN Family Medicine
DX: E86.0 Dehydration (principal); G89.29 Other chronic pain; Z90.49 Acquired absence of other specified parts of digestive tract; Z93.2 Ileostomy status
CPT/HCPCS: 96374; 96361; 99284; 80053; 81003; 81015; 85025; 87045; 87046; 87086; 87324; 87427; 87449

== ENCOUNTER 2025-03-06 12:28 | Emergency (ER) | payer OTHER, SELFPAY ==
[2025-03-06 12:30] VITALS: BP 94/76
[2025-03-06 12:55] LABS: Hematocrit 37.8 % (37.0-47.0); Hemoglobin 12.6 g/dL (12.0-16.0); Mean Corp Hgb Conc. 33.3 g/dL (33.0-37.0); Mean Corpuscular Volume 92.2 fL (81.0-99.0); Nucleated Red Blood Cells % 0 %; Platelet Count 321 10^3/uL (130-400); Red Cell Dist. Width 12.4 % (11.5-14.5)
[2025-03-06 13:26] LABS: ALT (SGPT) 15 U/L (0-35); AST (SGOT) 20 U/L (14-36); Albumin 3.8 g/dl (3.5-5.0); Alkaline Phosphatase 90 U/L (38-126); Blood Urea Nitrogen 10 mg/dl (7-17); Calcium 9.2 mg/dl (8.4-10.2); Carbon Dioxide 26 mmol/L (22-30); Chloride 106 mmol/L (98-107); Glucose 110 mg/dl (70-99); Lipase 464 U/L (23-300); Potassium 3.4 mmol/L (3.5-5.1); Sodium 140 mmol/L (135-145); Total Protein 6.8 g/dl (6.3-8.2); eGFR > 60.00
--- NOTE | 2025-03-06 14:54 | ED.GENMED ---
History of Present Illness
General
Chief Complaint: Abdominal Pain
Source: patient
Exam Limitations: none
Time Seen by Provider: 03/06/25 14:45
Nursing documentation reviewed up to this point in time: agreed with
History of Present Illness
History of Present Illness:
50-year-old female past medical history of ulcerative colitis status post ileostomy presenting to the emergency department today with concerns of right lower quadrant pain worsening over the past 2 days has had output of the ileostomy but claims
that it is decreased. Denies any nausea vomiting or fevers.
Review of Systems
Review of Systems
Allergies reviewed?: Yes
All Other Systems: ROS reviewed and negative except as documented in HPI and ROS
Phy Exam
Physical Exam
Physical Exam:
GENERAL: Alert , in no apparent distress
EYE: pupils equal and reactive
NECK: Supple, no significant adenopathy.
ENT: o/p clr, mmm.
CARDIAC: Regular rate and rhythm .
LUNGS: Clear breath sounds bilaterally, no acute respiratory distress, no wheezes/rales/rhonchi
ABDOMEN: Vague discomfort to the right lower quadrant otherwise soft abdomen
NEUROLOGICAL: Alert and oriented, no focal neuro deficits
SKIN: Warm and dry, skin intact.
MUSCULOSKELETAL: No edema, well perfused.
PSYCH: Normal and appropriate interaction.
Course
Orders/Labs/Results
Orders:
Orders
03/06/25 12:45
Complete Blood Count/With Diff Urgent
Comprehensive Metabolic Panel Urgent
Lactic Acid Urgent
Lipase Urgent
Blood Culture Urgent
BONNIE Source: Blood/Venous
Specimen Description:
03/06/25 14:52
CT Abd/pel W Iv And Oral Contr Urgent
Comment:
Reason For Exam: RLQpain, hx of ileostomy
HYDROmorphone [Dilaudid] 0.5 mg IV NOW STA
Iohexol [Omnipaque] See Protocol PO NOW STA
Ondansetron Injectable [Zofran] 4 mg IV NOW STA
03/06/25 14:53
0.9% Sodium Chloride 1000 ml [Nss] 1,000 ml IV BOLUS
03/06/25 16:24
HYDROmorphone [Dilaudid] 0.5 mg IV NOW STA
03/06/25 16:57
Lactate Level [Lactic Acid] Urgent
03/06/25 19:29
HYDROmorphone [Dilaudid] 0.5 mg IV NOW STA
03/06/25 19:33
Ondansetron Injectable [Zofran] 4 mg IV NOW STA
03/06/25 20:52
Diphenhydramine [Benadryl] 25 mg IV NOW STA
Ketorolac [Toradol] 15 mg IV NOW STA
Metoclopramide [Reglan] 10 mg IV NOW STA
03/06/25 20:53
0.9% Sodium Chloride 500 ml [Nss] 500 ml IV BOLUS
Dexamethasone Sod Phosphate [Decadron] 10 mg IV NOW STA
Abnormal Lab Results
03/06/25
12:45
RBC 4.10 L 10^6/uL
(4.20-5.40)
Lymphocytes % 19.6 L %
(20.5-51.1)
Eosinophils % 7.8 H %
(0-6)
Potassium 3.4 L mmol/L
(3.5-5.1)
Glucose 110 H mg/dl
(70-99)
Lactic Acid 2.1 H mmol/L
(0.7-2.0)
Lipase 464 H U/L
(23-300)
03/06/25 12:45
03/06/25 12:45
Vital Signs
Initial and Last Documented VS:
Initial Vital Signs
Temp Pulse Resp BP Pulse Ox
98.1 F 97 18 94/76 100
03/06/25 12:30 03/06/25 12:30 03/06/25 12:30 03/06/25 12:30 03/06/25 12:30
Last Documented Vital Signs
Temp Pulse Resp BP Pulse Ox
98.1 F 97 18 107/85 98
03/06/25 12:30 03/06/25 12:30 03/06/25 12:30 03/06/25 19:33 03/06/25 16:00
MDM/Problems Addressed
MDM/Problems Addressed:
50-year-old female presenting to the emergency department today with concerns of right lower quadrant Lele pain worsening over the past 2 days. Has an extensive history of multiple abdominal surgeries and has current ileostomy in place. Surgeon
is from [facility]. No white count on labs patient did have a slight elevated lactic acid however this improved with 1 L of fluid. Symptoms improved significantly while here. CT scan showed findings of pouchitis as well as some chronic
findings that were discussed with colorectal they recommended close outpatient follow-up with her GI team. Otherwise no objective findings consistent with anything life-threatening at this time. Stable for discharge. Return precautions given.
*Pulse Oximetry
SaO2: 100
Oxygen Mode of Delivery: Room air
Patient hypoxic: no (98)
*Critical Care Note
Total Time (30-74mins, 75-104mins- exclusive of procedures): Not Applicable
ED Attending Note
-
Portions of this chart may have been created with voice recognition software.� Occasional wrong word or��sound alike� substitutions may have occurred due to the inherent limitations of voice recognition software.
Discharge Plan
Departure
Patient Disposition: Home (Routine Discharge)
Date of Disposition: 03/06/25
Time of Disposition: 22:19
Patient with high blood pressure during this ER visit?: No
Condition: Good
Covid-19: Not Applicable
Discharge Problem:
Abdominal pain
Instructions: Abdominal Pain
Prescriptions:
New
oxycodone-acetaminophen [Percocet] 5-325 mg tablet
1 tab PO Q8H PRN (Reason: Pain) Qty: 7 0RF
No Action
diphenhydramine HCl 50 mg Capsule
50 mg PO HS
loperamide 2 mg Capsule
2 mg PO QID PRN (Reason: diarrhea)
lorazepam [Ativan] 0.5 mg Tablet
0.5 mg PO DAILY PRN (Reason: anxiety)
escitalopram oxalate [Lexapro] 10 mg Tablet
10 mg PO DAILY
Skyrizi 150 mg/mL Syringe
150 mg SC Q8W
Zantac Maximum Strength 150 mg Tablet
150 mg PO DAILY
Referrals:
Vinicio Richardson MD [Family Provider, Family Practice]
Activity Restrictions/Additional Instructions:
You came to the emergency department today with concerns of abdominal pain. Here you had a reassuring assessment. Please take the symptomatic medications and follow-up closely with your outpatient team. Return for any worsening, new or concerning
symptoms.
Interventions
Interventions:
*Risk Screen - Suicide Last Done: 03/06/25 12:33
*General Assessment Last Done: 03/06/25 15:13
*Neglect/Abuse Screening Last Done: 03/06/25 12:33
*ED- Fall Risk Assessment Last Done: 03/06/25 15:13
*ED COVID-19 Vaccine History Last Done: 03/06/25 15:13
*ED Influenza Vaccine History Last Done: 03/06/25 15:13
UW-[id number] Assessment Last Done: 03/06/25 14:55
Discharge Date and Time
Print Language: ICELANDIC
[2025-03-06 15:12] VITALS: BMI 20.7
[2025-03-06] MEDS: NSS 1000 IV (15:27)
[2025-03-06] MEDS: DILAUDID 0.5 MG IV ×3 (15:28→19:32)
[2025-03-06] MEDS: OMNIPAQUE 50 ML PO (15:28)
[2025-03-06] MEDS: ZOFRAN 4 MG IV ×2 (15:29→19:37)
[2025-03-06 16:19] VITALS: BP 96/68
[2025-03-06 18:21] VITALS: BP 107/81
[2025-03-06 19:33] VITALS: BP 107/85
[2025-03-06] MEDS: REGLAN 10 MG IV (20:58)
[2025-03-06] MEDS: DECADRON 10 MG IV (20:59)
[2025-03-06] MEDS: BENADRYL 25 MG IV (20:59)
[2025-03-06] MEDS: NSS 500 IV (20:59)
[2025-03-06] MEDS: TORADOL 15 MG IV (20:59)
[2025-03-06 22:09] VITALS: BP 93/73
== END 2025-03-06 22:32 | disposition home or self-care (01) ==
LOC: EMR 12:28
PROVIDERS: Emergency Medicine; Physician Assistant; EMERGENCY PHYSICIAN Emergency Medicine; FAMILY PHYSICIAN Family Medicine
DX: R10.31 Right lower quadrant pain (principal); Z90.49 Acquired absence of other specified parts of digestive tract; Z93.2 Ileostomy status
CPT/HCPCS: 99284; 96374; 96375; 96376; 96361; 74177; 80053; 83605; 83690; 85025; 87040; Q9967

== ENCOUNTER 2025-04-21 00:06 | Emergency (ER) | payer OTHER, SELFPAY ==
[2025-04-21] VITALS (8 sets, daily range): BP systolic 82–107; BP diastolic 56–74; BMI 19.7
[2025-04-21] MEDS: DILAUDID 0.5 MG IV ×2 (01:57→03:53)
[2025-04-21] MEDS: NSS 1000 IV (01:58)
[2025-04-21] MEDS: OMNIPAQUE 50 ML PO (01:59)
[2025-04-21 02:19] LABS: Hematocrit 39.2 % (37.0-47.0); Hemoglobin 13.9 g/dL (12.0-16.0); Mean Corp Hgb Conc. 35.5 g/dL (33.0-37.0); Mean Corpuscular Volume 87.1 fL (81.0-99.0); Nucleated Red Blood Cells % 0 %; Platelet Count 390 10^3/uL (130-400); Red Cell Dist. Width 11.8 % (11.5-14.5)
--- NOTE | 2025-04-21 02:21 | ED.GENMED ---
History of Present Illness
General
Chief Complaint: Abdominal Pain
Time Seen by Provider: 04/21/25 01:44
History of Present Illness
History of Present Illness:
see MDM
Phy Exam
Physical Exam
Physical Exam:
GENERAL: Alert , in no apparent distress
EYE: pupils equal and reactive
NECK: Supple
ENT: o/p clr, mmm.
CARDIAC: Regular rate and rhythm .
LUNGS: Clear breath sounds bilaterally, no acute respiratory distress, no wheezes/rales/rhonchi
ABDOMEN: Soft, mod RLQ tenderness, mild guarding, no rebound, post surgical changes
, no cvat, normal bowel sounds
NEUROLOGICAL: Alert and oriented, no focal neuro deficits
SKIN: Warm and dry, skin intact.
MUSCULOSKELETAL: No edema, well perfused. neg jessa's sign
PSYCH: Normal and appropriate interaction.
Course
Orders/Labs/Results
Orders:
Orders
04/21/25 01:46
CT Abd/pel W Iv And Oral Contr Urgent
Comment:
Reason For Exam: abd pain, crohns, ileostomy
0.9% Sodium Chloride 1000 ml [Nss] 1,000 ml IV BOLUS
HYDROmorphone [Dilaudid] 0.5 mg IV NOW STA
Iohexol [Omnipaque] See Protocol PO NOW STA
04/21/25 01:57
Basic Metabolic Panel Urgent
Comment: NO K
Complete Blood Count/With Diff Urgent
HCG, Serum Qualitative Screen Urgent
Comment: ADD ON
Lactic Acid Urgent
04/21/25 02:33
Iohexol [Omnipaque] 50 ml .ROUTE .[facility]
04/21/25 02:38
Add On- LAB Urgent
Tests Added?: hcg serum qual
04/21/25 03:31
HYDROmorphone [Dilaudid] 0.5 mg IV NOW STA
04/21/25 03:47
LFT [Bgipp-Podd-Qmhtetk] Urgent
Potassium Urgent
04/21/25 03:49
Ondansetron Injectable [Zofran] 4 mg IV NOW STA
04/21/25 06:12
Potassium Chloride [KCl] 20 meq PO NOW STA
04/21/25 06:15
Urinalysis Reflex To Culture Urgent
Date Specimen was Collected: 04/21/25
Time Specimen was Collected: 06:11
Abnormal Lab Results
04/21/25 04/21/25
01:57 03:47
Absolute Monos (auto) 1.3 H 10^3/uL
(0.1-0.6)
Absolute Eos (auto) 0.8 H 10^3/uL
(0-0.7)
Monocytes % 12.7 H %
(1.7-9.3)
Eosinophils % 8.1 H %
(0-6)
Sodium 132 L mmol/L
(135-145)
Potassium 3.4 L mmol/L
(3.5-5.1)
Chloride 96 L mmol/L
(98-107)
BUN 24 H mg/dl
(7-17)
Creatinine 1.1 H mg/dL
(0.6-1.0)
Total Protein 6.1 L g/dl
(6.3-8.2)
Albumin 3.3 L g/dl
(3.5-5.0)
04/21/25 01:57
04/21/25 03:47
Vital Signs
Initial and Last Documented VS:
Initial Vital Signs
Temp Pulse Resp BP Pulse Ox
36.9 C 92 18 107/74 98
04/21/25 00:20 04/21/25 00:20 04/21/25 00:20 04/21/25 00:20 04/21/25 00:20
Last Documented Vital Signs
Temp Pulse Resp BP Pulse Ox
36.6 C 85 11 95/72 96
04/21/25 06:20 04/21/25 05:45 04/21/25 05:45 04/21/25 05:00 04/21/25 05:45
MDM/Problems Addressed
Differential Diagnosis Includes:
see MDM
MDM/Problems Addressed:
Note:
CHIEF COMPLAINT(S)
Severe abdominal pain for the past few days.
HISTORY OF PRESENT ILLNESS
The patient is a female with a significant surgical history related to Crohns disease. She reports experiencing severe abdominal pain in the last few days, described as 'phenomenal pain,' primarily located around the abdomen. The pain started on
Thursday and has been persistent, with episodic exacerbations described as 'aching like waves.' She mentions that these pain episodes reach intensity levels of 8 or 9 out of 10, though not 10, and the pain is constant but worsens in waves, causing
her difficulty in breathing during exacerbations.
The patient has not been using regular pain medication but tried acetaminophen as recommended by her assembly inspector helper. She reports sometimes feeling her bowel movements struggling but eventually normalizing with no significant blood in her
ileostomy bag but presence of mucus. She denies recent steroid use and reports chills but is unsure if they are actual chills or just cold sensations. Her baseline blood pressure is cited as 94 or 95 over 55. The patient contacts her GI doctor
regularly, and her last ER visit for abdominal pain was around March.
Her surgical history includes a total colectomy followed by a J-Pouch procedure in 2001, subsequent surgeries including partial small bowel resections, and multiple complications resulting in the current permanent ileostomy. She reported a history
of abscesses, fistula formation, and reconstructive abdominal surgeries due to Crohns disease complications.
pt was here in mar for simlar pain in the RLQ
she denies chronic opiate use
PAST SURGICAL HISTORY
- Total colectomy with J-pouch in 2001
- Multiple abdominal surgeries for abscesses, fistulas, and bowel obstructions
- Permanent ileostomy after repeated complications
REVIEW OF SYSTEMS
- Gastrointestinal: Severe episodic abdominal pain, presence of mucus in ileostomy output, no significant blood
- General: Chills noted but uncertain if they are chills or just feeling cold
PHYSICAL EXAM
- Nursing notes reviewed and vital signs reviewed.
- Blood pressure 82/55, indicative of possible dehydration or compromise
PLAN
- Administer intravenous fluids for hydration due to low blood pressure
- Consider pain management options escalating from acetaminophen as required, given the significant pain described by the patient
DIFFERENTIAL DIAGNOSIS
The Differential Diagnosis includes, in no particular order and is not limited to:
1. Small bowel obstruction or partial obstruction
2. Crohns disease flare-up
3. Adhesive small bowel obstruction
4. Infectious or inflammatory abscess
5. Mesenteric ischemia
6. Volvulus
7. Enteric fistula
8. Peritoneal adhesion complications
9. Post-surgical infection
10. Hernia
50 y/o F
unfortunate with h/o UC and total colectomy
then had ocmplication from an oophrectomy which caused perf of SB requiring ileosteomy which was diverted but she had post op abscesses and required several additional surgeries
ultimately has j pouch but diverting ileostomy that is permanent
pt has had episodes of RLQ
most recne twas in nov
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
no treatment change
she is followed by [facility]
pt is having pain x 2 days rlq again
no fever/chills
mild nausea
no vomiting
about same output stool in bag
on exam tender rlq mild guarding
no rebound
post surgical changes
ileosteomy with stool in bag, no blood
wbc normal
afebrile
ct nondiagnostic
pt's pain mirpvoed with dilaudid
d/c home
*Pulse Oximetry
SaO2: 99
Oxygen Mode of Delivery: Room air
Patient hypoxic: no
*Critical Care Note
Total Time (30-74mins, 75-104mins- exclusive of procedures): Not Applicable
ED Attending Note
-
Portions of this chart may have been created with voice recognition software.� Occasional wrong word or��sound alike� substitutions may have occurred due to the inherent limitations of voice recognition software.
Discharge Plan
Departure
Patient Disposition: Home (Routine Discharge)
Date of Disposition: 04/21/25
Time of Disposition: 06:14
Patient with high blood pressure during this ER visit?: No
Condition: Fair
Covid-19: Not Applicable
Discharge Problem:
Abdominal pain, Hypokalemia
Instructions: Abdominal Pain
Prescriptions:
No Action
diphenhydramine HCl 50 mg Capsule
50 mg PO HS
loperamide 2 mg Capsule
2 mg PO QID PRN (Reason: diarrhea)
lorazepam [Ativan] 0.5 mg Tablet
0.5 mg PO DAILY PRN (Reason: anxiety)
escitalopram oxalate [Lexapro] 10 mg Tablet
10 mg PO DAILY
Skyrizi 150 mg/mL Syringe
150 mg SC Q8W
Zantac Maximum Strength 150 mg Tablet
150 mg PO DAILY
oxycodone-acetaminophen [Percocet] 5-325 mg tablet
1 tab PO Q8H PRN (Reason: Pain) Qty: 7 0RF
Referrals:
Vinicio Richardson MD [Family Provider, Family Practice]
Activity Restrictions/Additional Instructions:
Not sure the cause of your abdominal pain but your CAT scan and blood work were reassuring.
You did have a slightly low potassium. I gave you a supplement today. You can make sure to try it avocado or banana to help support your potassium. Return for any concerns like fever or chills, persistent vomiting, etc.
Interventions
Interventions:
*General Assessment Last Done: 04/21/25 01:43
*Neglect/Abuse Screening Last Done: 04/21/25 00:20
*ED COVID-19 Vaccine History Last Done: 04/21/25 02:15
*ED Influenza Vaccine History Last Done: 04/21/25 02:15
[facility] Fall Risk Assessment Tool Last Done: 04/21/25 04:58
*Risk Screen - Suicide (C-SSRS) Last Done: 04/21/25 00:20
FL-Thwgbx-Hyfmyvkrhx Assessment Last Done: 04/21/25 01:35
Discharge Date and Time
Print Language: [id number]
[2025-04-21 03:04] LABS: Blood Urea Nitrogen 24 mg/dl (7-17); Calcium 9.7 mg/dl (8.4-10.2); Carbon Dioxide 27 mmol/L (22-30); Chloride 96 mmol/L (98-107); Estimated Creatinine Clearance 50 ml/min; Glucose 89 mg/dl (70-99); Sodium 132 mmol/L (135-145); eGFR > 60.00
[2025-04-21 03:39] LABS: HCG, Serum Qualitative Screen Negative
[2025-04-21] MEDS: ZOFRAN 4 MG IV (03:53)
[2025-04-21 05:15] LABS: ALT (SGPT) 14 U/L (0-35); AST (SGOT) 19 U/L (14-36); Albumin 3.3 g/dl (3.5-5.0); Alkaline Phosphatase 98 U/L (38-126); Potassium 3.4 mmol/L (3.5-5.1); Total Protein 6.1 g/dl (6.3-8.2)
[2025-04-21] MEDS: KCL 20 MEQ PO (06:22)
[2025-04-21 06:45] LABS: Urine Character Clear (Clear)
[2025-04-21 07:02] LABS: Urine Red Blood Cell 0-2 /HPF (0-2); Urine White Cell 50-60 /HPF (0-5)
== END 2025-04-21 07:01 | disposition home or self-care (01) ==
LOC: EMR 00:06
PROVIDERS: Physician Assistant; EMERGENCY PHYSICIAN Student in an Organized Health Care Education/Training Program; FAMILY PHYSICIAN Family Medicine
DX: R10.9 Unspecified abdominal pain (principal); E87.6 Hypokalemia; K50.90 Crohn's disease, unspecified, without complications; N32.89 Other specified disorders of bladder; Z90.49 Acquired absence of other specified parts of digestive tract
CPT/HCPCS: 99284; 96374; 96375; 96376; 74177; 80048; 80076; 81003; 81015; 83605; 84132; 84703; 85025; 87086; Q9967